=== PATIENT | female | born 1985 | race Caucasian/White ===

== ENCOUNTER 2021-10-14 02:23 | Inpatient (IN) ==
[2021-10-14] MEDS ORDERED: Penicillin G Potassium IV 5,000,000 UNITS in NS 0.9% 100 ml BAG 100 ML IVPB ONE (03:13)
[2021-10-14] MEDS ORDERED: Lactated Ringers 1000 ml BAG 1,000 ML IV ONE ×2 (03:13→04:17)
[2021-10-14] MEDS ORDERED: Buffered Lidocaine 1% SYRIN 1 ml INTRADERM ONE (03:13)
[2021-10-14 03:33] LABS: ABS Lymphocytes 2.8 10^3/ul (1.0-4.8); ABS Monocytes 0.4 10^3/ul (0-0.8); ABS Neutrophils 6.7 10^3/ul (1.5-7.7); Eosinophil % 0.3 %; Hematocrit 39 % (35-47); Hemoglobin 13.4 g/dL (12.0-16.0); Lymphocyte % 28.2 %; Mean Corpuscular HGB Conc 35 g/dL (31-36); Mean Corpuscular Hemoglobin 30 pg (27-31); Mean Corpuscular Volume 88 fL (80-97); Mean Platelet Volume 9.7 fL (7.4-10.4); Nucleated Red Blood Cells % 0.1; Platelet Count 254 10^3/uL (150-450); Red Blood Count 4.42 10^6 /uL (3.70-4.87); Red Cell Distribution Width 15 % (10-15)
[2021-10-14] MEDS ORDERED: fentaNYL 100 mcg/2 ml 50 MCG/ML VIAL ONE ×3 (03:36→22:30)
[2021-10-14] MEDS ORDERED: OBEPIDURAL (200 ML) 200 ML EPIDURAL ONE (03:37)
[2021-10-14] MEDS ORDERED: Lactated Ringers 1000 ml BAG 1,000 ML IV SCH ×3 (04:00→05:00)
[2021-10-14] MEDS ORDERED: Phenylephrine 40 mcg/mL 10mL (400mcg) SYRINGE IV PUSH PRN ×2 (04:17)
[2021-10-14] MEDS ORDERED: Sodium Citrate/Citric Acid LIQ 15 ML UDC PO PRN (04:17)
[2021-10-14] MEDS ORDERED: Lactated Ringers 1000 ml BAG 500 ML IV PRN (04:17)
[2021-10-14] MEDS ORDERED: EPHEDrine (Pressors) 50 MG/ML VIAL IV PUSH PRN ×2 (04:17)
[2021-10-14] MEDS ORDERED: OBEPIDURAL (200 ML) 200 ML EPIDURAL SCH (05:00)
[2021-10-14 06:05] LABS: Urine Appearance Cloudy; Urine Bilirubin Negative (Negative); Urine Blood Negative (Negative); Urine Color Yellow; Urine Glucose Negative (Negative); Urine Ketones 1+ (Negative); Urine Nitrite Negative (Negative); Urine Protein Negative (Negative); Urine Urobilinogen Negative (Negative)
[2021-10-14 06:21] LABS: Urine Benzodiazepine Screen None Detected (None Detect); Urine Cannabinoids Screen None Detected (None Detect); Urine Opiates Screen None Detected (None Detect)
[2021-10-14] MEDS: Penicillin G Potassium IV 3,000,000 UNITS in NS 0.9% 100 ML IVPB SCH ×4 (07:45→20:32)
[2021-10-14] MEDS ORDERED: D5LR 1000 ml BAG 1,000 ML IV ONE (13:10)
[2021-10-14] MEDS ORDERED: Oxytocin in LR 20 UNITS/1,000 ML BAG IVPB ONE (13:25)
[2021-10-14] MEDS: Oxytocin in LR 20 UNITS/1,000 ML BAG IVPB SCH (13:32)
[2021-10-14] MEDS ORDERED: Ondansetron 4 mg VIAL 2 MG/ML 2 ml VIAL IV ONE (16:57)
[2021-10-14] MEDS ORDERED: Lidocaine 1.5% EPI 1:200,000 30 ML SDV ONE (21:12)
[2021-10-14] MEDS ORDERED: Ondansetron 4 mg VIAL 2 MG/ML 2 ml VIAL IV PRN (22:12)
[2021-10-14] MEDS ORDERED: Ondansetron 4 mg VIAL 2 MG/ML 2 ml VIAL ONE (22:15)
[2021-10-15] MEDS ORDERED: ceFOXitin 2 GM IVPREMIX 2 GM/50 ML BAG ONE (00:16)
[2021-10-15] MEDS ORDERED: Sodium Citrate/Citric Acid LIQ 15 ML UDC ONE (00:16)
[2021-10-15] MEDS ORDERED: Bupivacaine 0.5% SDV PF 30ML VIAL ONE (00:20)
[2021-10-15] MEDS ORDERED: ceFOXitin 2 GM IVPREMIX 2 GM/50 ML BAG IVPB ONE (00:21)
[2021-10-15] MEDS ORDERED: Morphine PF AMP (0.5MG/ML) 5 MG/10 ML AMP ONE (00:21)
[2021-10-15] MEDS ORDERED: fentaNYL 100 mcg/2 ml 50 MCG/ML VIAL ONE (00:31)
[2021-10-15] MEDS ORDERED: Ketamine HCL 50 mg/ml 10 ml VIAL (500 MG) ONE (00:48)
[2021-10-15] MEDS ORDERED: Oxytocin 10 UNITS/ML 1 ML VIAL ONE (01:01)
[2021-10-15] MEDS ORDERED: Lidocaine 2% PF 10 ML AMP ONE (01:07)
[2021-10-15] MEDS ORDERED: Midazolam 2 mg/2 ml VIAL 1 mg/ml 2 ml VIAL (2 mg) ONE (01:08)
[2021-10-15] MEDS ORDERED: Midazolam 5 mg/5 ml VIAL 1 mg/ml 5 ml VIAL (5 mg) ONE (01:20)
[2021-10-15] MEDS ORDERED: Ondansetron 4 mg VIAL 2 MG/ML 2 ml VIAL IV PRN (01:24)
[2021-10-15] MEDS ORDERED: Naloxone 0.4 mg VIAL 0.4 mg/ml 1 ml VIAL IV PRN ×2 (01:24→01:26)
[2021-10-15] MEDS ORDERED: Scopolamine 1 mg/72hr PATCH TRANSDERM PRN (01:26)
[2021-10-15] MEDS ORDERED: Prochlorperazine 5 mg/ml 2 ml VIAL (10 mg) IV PRN (01:26)
[2021-10-15] MEDS ORDERED: oxyCODONE/Acetamin 5/325 mg TAB PO PRN (01:26)
[2021-10-15] MEDS ORDERED: Glycerin ADULT 2.4 gm SUPP PR PRN (02:15)
[2021-10-15] MEDS ORDERED: Dibucaine 1% OINT 28.35 GM TUBE PR PRN (02:15)
[2021-10-15] MEDS ORDERED: Witch Hazel PAD JAR TOPICAL PRN (02:15)
[2021-10-15] MEDS: Oxytocin in LR 20 UNITS/1,000 ML BAG IVPB SCH (02:18)
[2021-10-15] MEDS: fentaNYL 100 mcg/2 ml 50 MCG/ML VIAL IV PRN ×2 (02:26→03:07)
[2021-10-15] MEDS ORDERED: Lactated Ringers 1000 ml BAG 1,000 ML IV SCH (03:00)
[2021-10-15] MEDS ORDERED: Oxytocin in LR 20 UNITS/1,000 ML BAG IVPB SCH (03:00)
[2021-10-15] MEDS: Penicillin G Potassium IV 3,000,000 UNITS in NS 0.9% 100 ML IVPB SCH (04:28)
[2021-10-15 05:36] LABS: ABS Lymphocytes 1.1 10^3/ul (1.0-4.8); ABS Monocytes 0.7 10^3/ul (0-0.8); ABS Neutrophils 14.1 10^3/ul (1.5-7.7); Eosinophil % 0.1 %; Hematocrit 29 % (35-47); Hemoglobin 10.1 g/dL (12.0-16.0); Lymphocyte % 7.1 %; Mean Corpuscular HGB Conc 35 g/dL (31-36); Mean Corpuscular Hemoglobin 31 pg (27-31); Mean Corpuscular Volume 88 fL (80-97); Mean Platelet Volume 9.3 fL (7.4-10.4); Platelet Count 186 10^3/uL (150-450); Red Blood Count 3.28 10^6 /uL (3.70-4.87); Red Cell Distribution Width 15 % (10-15); White Blood Count 15.9 10^3/uL (3.5-10.8)
[2021-10-15] MEDS ORDERED: RHO D Immune Globulin (HUMAN) 300 MCG = 1,500 I.U. INJ IM ONE (15:53)
[2021-10-15] MEDS ORDERED: Phenylephrine 40 mcg/mL 10mL (400mcg) SYRINGE ONE (16:46)
[2021-10-18 07:51] VITALS: BP 136/88
== END 2021-10-18 12:48 | disposition home or self-care (01) | DRG 787 ==
LOC: MCHOBOUT 02:23 → MCHOB 02:52
PROVIDERS: ADMIT Midwife; ATTEND Obstetrics & Gynecology